=== PATIENT | female | born 1965 | race Two or more races ===

== ENCOUNTER 2021-04-29 16:51 | Emergency (ER) | payer OTHER ==
[~2021-04-29] VITALS: Ht 167.6 cm; Wt 90.9 kg
[2021-04-29 21:45] VITALS: BP 149/87
== END 2021-04-29 22:33 | disposition home or self-care (01) ==
LOC: EMS 16:53
DX: M71.21 Synovial cyst of popliteal space [Baker], right knee (principal); F17.210 Nicotine dependence, cigarettes, uncomplicated
CPT/HCPCS: 93971; 99284; Z7502

== ENCOUNTER 2021-11-17 16:45 | Emergency (ER) | payer OTHER ==
[~2021-11-17] VITALS: Ht 167.6 cm; Wt 90.0 kg
[2021-11-17] MEDS ORDERED: ALBU8HFA IH (19:28)
[2021-11-17] MEDS ORDERED: BENZ-70 PO (19:29)
[2021-11-17 19:43] VITALS: BP 118/66
== END 2021-11-17 19:45 | disposition home or self-care (01) ==
LOC: EMS 16:48
DX: J40 Bronchitis, not specified as acute or chronic (principal); I83.90 Asymptomatic varicose veins of unspecified lower extremity; F17.210 Nicotine dependence, cigarettes, uncomplicated
CPT/HCPCS: 71046; 99283

== ENCOUNTER 2023-05-21 21:30 | Emergency (ER) | payer OTHER ==
[~2023-05-21] VITALS: Ht 167.6 cm; Wt 90.0 kg
[~2023-05-21 21:30] MED LIST: ALBU18HF12 IH; BENZ-227 PO
[2023-05-21 22:30] VITALS: TEMP 97.3
[2023-05-22 01:00] VITALS: BP 129/74; PULSE 70; RESP 16
== END 2023-05-22 01:34 | disposition home or self-care (01) ==
LOC: EMS 21:32
DX: S61.216A Laceration without foreign body of right little finger without damage to nail, initial encounter (principal); F17.210 Nicotine dependence, cigarettes, uncomplicated; V49.88XA Car occupant (driver) (passenger) injured in other specified transport accidents, initial encounter; Y93.89 Activity, other specified; Y92.89 Other specified places as the place of occurrence of the external cause; Y99.8 Other external cause status
CPT/HCPCS: 12002; 99282; Z7502